=== PATIENT | male | born 1980 | race African-American/Black ===

== ENCOUNTER 2024-04-03 09:55 | Outpatient (AMB) | payer OTHER, SELFPAY ==
--- NOTE | 2024-04-03 10:05 | A.OFFPC_ITS ---
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
--- NOTE | 2024-04-03 10:05 | MHC.PC.OV ---
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
[2024-04-03 10:07] VITALS: BP 118/74; PULSE 82; O2SAT 98; BMI 25.1
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
== END 2024-04-03 10:22 | disposition home or self-care (01) ==
PROVIDERS: Visit Provider Internal Medicine
DX: T23.211A Burn of second degree of right thumb (nail), initial encounter (principal)

== ENCOUNTER → 2024-04-03 09:55 | Outpatient (BNVA) | payer OTHER, SELFPAY | PROVIDERS: Visit Provider Internal Medicine ==

== ENCOUNTER 2024-05-03 11:01 | Outpatient (AMB) | payer OTHER, SELFPAY ==
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
[2024-05-03 11:52] VITALS: BP 128/80; PULSE 78; O2SAT 98
--- OUTSIDE RECORDS SUMMARY | 2024-05-09 01:48 | XMS_ITS | Continuity of Care Document ---
Author Organization [facility] Address [address] [place] [address]- Care Team Providers Care Spiral Weaver Name Role Phone Not on Staff, PCP Primary Care Physician Unavail able Encounter [facility] Date(s): 04/03/24 - 05/03/24 [facility] [address] [place] [phone] Encounter Type: Triage Allergies, Adverse Reactions, Alerts Substance Criticality Severity Reaction Reaction Severity Status shellfish Blisters Hives Active Medications atorvastatin 40 mg oral tablet 1 tablet = 40 mg, By Mouth, Daily, 0 Refills, Maintenance, 04/27/24 1:30:00 PM EST, Partial fill upon patient request if the prescription is for a schedule II opioid drug. Start Date: 04/27/24 Status: Ordered Repeat number: 1 Lantus Inj = 44 units, Subcutaneous Infusion, Daily at bedtime, 0 Refills, Maintenance, 04/27/24 1:30:00 PM EST, Partial fill upon patient request if the prescription is for a schedule II opioid drug. Start Date: 04/27/24 Status: Ordered Repeat number: 1 Metformin By Mouth, 2 times a day, 0 Refills, Maintenance, 04/27/24 1:30:00 PM EST, Partial fill upon patientrequest if the prescription is for a schedule II opioid drug. Start Date: 04/27/24 Status: Ordered Repeat number: 1 Problem List Condition Confirmation Course Effective Dates Status H ealth Status Informant Environmental allergies Confirmed Active GERD (gastroesophageal reflux disease) Confirmed Active High cholesterol Confirmed Active DM (diabetes mellitus), type 2 Confirmed Active Patient Care team information Care Team Personnel Name: Not on Staff, PCP Position: [facility] Physician (General Medicine) Member Role: PCP Insurance Providers Guarantor name: NA Health Plan Information #: 1 Payer: [employer] Member Number: NA Policy Number: NA Group Number: NA
== END 2024-05-03 12:36 | disposition home or self-care (01) ==
PROVIDERS: Visit Provider Physician Assistant
DX: L84 Corns and callosities (principal); Z23 Encounter for immunization; T23.211A Burn of second degree of right thumb (nail), initial encounter

== ENCOUNTER → 2024-05-03 11:01 | Outpatient (BNVA) | payer OTHER, SELFPAY | PROVIDERS: Visit Provider Physician Assistant | DX: L84 Corns and callosities (principal); E11.9 Type 2 diabetes mellitus without complications; T23.211D Burn of second degree of right thumb (nail), subsequent encounter; X08.8XXD Exposure to other specified smoke, fire and flames, subsequent encounter; Z23 Encounter for immunization | CPT/HCPCS: 90471; 90715 ==

== ENCOUNTER 2024-06-16 10:23 | Emergency (ER) | payer OTHER, SELFPAY ==
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
[2024-06-16 10:32] VITALS: BP 140/88; PULSE 87; RESP 19; TEMP 36.6; O2SAT 99; BMI 25.1
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
[2024-06-16 12:59] LABS: MANUAL DIFF FLAG NO
[2024-06-16 13:02] LABS: Basophils Absolute Auto 0.1 X10*3/uL (0.0-0.2); Basophils Percent Auto 1.2 % (0-2); Eosinophils Absolute Auto 0.1 X10*3/uL (0.0-0.4); Eosinophils Percent Auto 2.3 % (0-4); Hematocrit 46.5 % (42.0-52.0); Hemoglobin 17.1 g/dl (14.0-18.0); Imm Gran Abs Auto 0.01 X10*3/uL (0.00-0.03); Imm Gran Pct Auto 0.2 % (0.0-0.4); Lymphocytes Absolute Auto 1.4 X10*3/uL (1.2-4.9); Lymphocytes Percent Auto 31.3 % (20-40); Mean Corpuscular HGB Conc 36.8 g/dl (31.0-36.0); Mean Corpuscular Hemoglobin 30.1 pg (27.0-33.0); Mean Corpuscular Volume 81.9 fL (80.0-98.0); Mean Platelet Volume 9.9 fL (9.4-12.4); Monocytes Absolute Auto 0.5 X10*3/uL (0.1-1.2); Monocytes Percent Auto 10.6 % (2-11); Neutrophils Absolute Auto 2.4 x10*3/uL (2.0-8.3); Neutrophils Percent Auto 54.4 % (45-73); Platelet Count 270 X10*3/uL (160-400); Red Blood Count 5.68 X10*6/uL (4.60-5.80); Red Cell Distribution Width 11.9 % (11.0-16.0); White Blood Count 4.3 X10*3/uL (4.8-10.8)
[2024-06-16 13:16] LABS: Alanine Aminotransferase 18 U/L (0-40); Albumin Level 4.1 g/dL (3.5-5.0); Alkaline Phosphatase 84 U/L (39-117); Anion Gap 9 (12-20); Aspartate Amino Transferase 19 U/L (5-37); Bilirubin Direct 0.2 mg/dL (0.0-0.5); Bilirubin Total 0.7 mg/dL (0.0-1.0); Blood Urea Nitrogen 10 mg/dL (9-16); Calcium 8.8 mg/dL (8.4-10.2); Carbon Dioxide 27 mmol/L (22-29); Chloride 109 mmol/L (96-108); Creatinine Clr Calc Pharmacy 91.2; Estimated Glomerular Filt Rate > 60; Glucose Random 219 mg/dL (60-115); Magnesium 1.7 mg/dL (1.6-2.6); Potassium 4.3 mmol/L (3.3-5.1); Sodium 141 mmol/L (135-145); Total Protein 7.8 g/dL (6.5-8.0)
[2024-06-16] MEDS: iohexoL 350 MG/ML 100 ML INFUS..BTL IV (13:55)
[2024-06-16 13:58] VITALS: BP 153/92; PULSE 77; RESP 16; O2SAT 100
[2024-06-16 15:57] VITALS: BP 135/86; PULSE 79; RESP 18; TEMP 36.6; O2SAT 100
[2024-06-16 16:03] VITALS: BP 135/86; PULSE 79; RESP 18; TEMP 36.6; O2SAT 100
== END 2024-06-16 16:07 | disposition home or self-care (01) ==
PROVIDERS: Emergency Provider Emergency Medicine
DX: S13.4XXA Sprain of ligaments of cervical spine, initial encounter (principal); S39.011A Strain of muscle, fascia and tendon of abdomen, initial encounter; S29.011A Strain of muscle and tendon of front wall of thorax, initial encounter; V43.52XA Car driver injured in collision with other type car in traffic accident, initial encounter; Y93.89 Activity, other specified; Y92.411 Interstate highway as the place of occurrence of the external cause; Y99.9 Unspecified external cause status
CPT/HCPCS: 36415; 70450; 71260; 72125; 74177; 80048; 80076; 83735; 85025; 99283; 99284; Q9967